=== PATIENT | female | born 1990 | race African-American/Black ===

== ENCOUNTER 2021-12-27 18:44 | Emergency (ER) | payer MEDICAID ==
[~2021-12-27] VITALS: Ht 167.6 cm; Wt 114.0 kg
[2021-12-27 18:52] VITALS: BP 127/71
[2021-12-27] MEDS ORDERED: IBUPROFEN 400MG TABLET PO ONE (20:45)
== END 2021-12-28 00:43 | disposition left against medical advice (07) ==
LOC: ER 18:44
DX: R22.0 Localized swelling, mass and lump, head (principal); Z53.21 Procedure and treatment not carried out due to patient leaving prior to being seen by health care provider
CPT/HCPCS: 93005